=== PATIENT | female | born 1960 | race Caucasian/White ===

== ENCOUNTER → 2017-03-24 09:14 | Outpatient (CLI) | payer MEDICAID | END | disposition home or self-care (01) | LOC: D.RAD 09:14 | DX: K21.9 Gastro-esophageal reflux disease without esophagitis (principal) ==

== ENCOUNTER 2017-04-12 05:08 | Day surgery (SDC) | payer MEDICAID ==
[~2017-04-12] VITALS: Ht 162.6 cm; Wt 105.0 kg
[2017-04-12] MEDS ORDERED: OMEPRAZOLE40 MG PO (06:01)
[2017-04-12] MEDS ORDERED: WELLBUTRIN SR150 MG PO (06:02)
[2017-04-12] MEDS ORDERED: HCTZ25 MG PO (06:02)
[2017-04-12] MEDS ORDERED: ZYRTEC10 MG PO (06:03)
[2017-04-12] MEDS ORDERED: ZOVIRAX200 MG PO (06:03)
[2017-04-12 06:24] VITALS: BP 137/71; Ht 162.6 cm; Wt 105.0 kg
[2017-04-12 07:04] LABS: HEMATOCRIT 38.7 % (36.0-48.0); HEMOGLOBIN 12.8 g/dL (12-16); MCH 28.1 pg (26.0-34.0); MCHC 33.1 g/dL (31.0-37.0); MCV 84.9 fL (80.0-100.0); RBC 4.56 10x6/uL (4.00-5.40); RDW 15.4 % (11.5-14.5); WBC 6.4 10x3/uL (4.8-10.8)
--- NOTE | 2017-04-12 11:41 | NUR ---
0830-RECD FROM GI LAB, ALERT. 0900-NO NAUSEA WITH LIQUIDS 0930-IV D/C. AWAITING TRANSPORTATION 1130-TRANSPORTATION(DAUGHTER) HERE AT [facility]. D/C VIA WHEELCHAIR.
== END 2017-04-12 11:40 | disposition home or self-care (01) ==
LOC: D.OPS 05:08
PROVIDERS: Anesthesiology
DX: K21.0 Gastro-esophageal reflux disease with esophagitis (principal); K44.9 Diaphragmatic hernia without obstruction or gangrene; Z01.812 Encounter for preprocedural laboratory examination

== ENCOUNTER 2017-04-28 05:14 | Inpatient (IN) | payer MEDICAID | END 2017-04-29 16:18 | disposition home or self-care (01) | DRG 328 | LOC: D.MS 05:14 | PROVIDERS: ADMIT Surgery | PROC: 0DV44ZZ Restriction of Esophagogastric Junction, Percutaneous Endoscopic Approach (ICD-10-PCS; principal; 2017-04-28) | PROC: 0BQR4ZZ (ICD-10-PCS; principal; 2017-04-28) | PROC: 0BQS4ZZ (ICD-10-PCS; principal; 2017-04-28) | DX: K21.9 Gastro-esophageal reflux disease without esophagitis (principal); K44.9 Diaphragmatic hernia without obstruction or gangrene; E66.9 Obesity, unspecified; Z68.39 Body mass index [BMI] 39.0-39.9, adult ==